=== PATIENT | male | born 1980 | race Caucasian/White ===

== ENCOUNTER 2017-05-26 17:29 | Emergency (ER) | payer BC ==
[~2017-05-26] VITALS: Ht 182.9 cm; Wt 167.8 kg
--- NOTE | 2017-05-27 11:58 | EKG ---
[facility] [address] [facility] [place] [address] Signed Normal sinus rhythm Low voltage QRS Borderline ECG No previous ECGs available Confirmed by TOAN PRECIADO MD ([id number] on 05/27/2017 11:58:46 AM Electronically Signed By: TOAN PRECIADO MD 05/27/17 1158 PATIENT NAME: KAYE GONZALEZ Electrocardiogram DATE OF : 80 PHYSICIAN: TOAN PRECIADO MD REPORT #: [id number] REPORT IS CONFIDENTIAL AND NOT TO BE RELEASED WITHOUT AUTHORIZATION
== END 2017-05-26 19:50 | disposition home or self-care (01) ==
LOC: ED 17:29
DX: R60.0 Localized edema (principal); E66.9 Obesity, unspecified; Z88.1 Allergy status to other antibiotic agents
CPT/HCPCS: 80053; 85025; 85379; 93005; 93010; 99284